=== PATIENT | female | born 1985 | race Caucasian/White ===

== ENCOUNTER 2016-12-04 17:06 | Emergency (ER) ==
[2016-12-04 17:14] VITALS: BP 150/93
[2016-12-04 17:50] LABS: URINE SOURCE CLEAN CATCH
--- NOTE | 2016-12-04 18:12 | PROVIDER DOCUMENTATION ---
HPI-Female /OB/Breast - General Chief Complaint: UTI Symptoms Stated Complaint: BACK PAIN Time Seen by Provider: 12/04/16 17:35 Source: reports: patient Allergies/Adverse Reactions: Patient Allergies Allergy/AdvReac Type Severity Reaction Status Date / Time No Known Allergies Allergy Verified 04/19/15 16:09 Home Medications: Home Medication List Medication Instructions Recorded Confirmed Last Taken Type Methocarbamol [Robaxin] 500 mg PO BID #30 tablet 12/04/16 Unknown Rx Nitrofurantoin Macrocrystal 100 mg PO BID #20 capsule 12/04/16 Unknown Rx [Nitrofurantoin] Phenazopyridine HCl [Pyridium] 100 mg PO TID #6 tablet 12/04/16 Unknown Rx - History of Present Illness-Female /OB Nature of Presenting Problem: 31 y/o WF c/o L low back pain x 2 days. Pt states no radiation, denies urinary sxs, injury, trauma, heavy lifting. Pt states no other sxs. Review of Systems - Adult - REVIEW OF SYSTEMS - ADULT Constitutional: reports: no symptoms reported. denies: chills, fever Eyes: reports: no symptoms reported. denies: blurred vision, double vision Ears, Nose, Mouth & Throat: reports: no symptoms reported. denies: ear pain, nose pain Cardiovascular: reports: no symptoms reported. denies: chest pain, palpitations Respiratory: reports: no symptoms reported. denies: dyspnea on exertion, shortness of breath Gastrointestinal: reports: no symptoms reported. denies: nausea, vomiting Genitourinary: reports: no symptoms reported. denies: dysuria, frequency Musculoskeletal: reports: see HPI, back pain. denies: joint pain, joint swelling Integumentary: reports: no symptoms reported. denies: nail changes, rash Neurological: reports: no symptoms reported. denies: numbness, paresthesia Psychiatric: reports: no symptoms reported Endocrine: reports: no symptoms reported. denies: cold intolerance, heat intolerance Hematologic/Lymphatic: reports: no symptoms reported. denies: easy bruising, prolonged bleeding Allergic/Immunologic: reports: no symptoms reported All Other Systems: Reviewed and Negative Past History - Adult - PAST MEDICAL HISTORY-ADULT Review of Records: reports: Nursing Assessment Review, Medications Reviewed Major Childhood Illnesses: reports: denies history Cardiovascular: reports: denies history Respiratory: reports: denies history Gastrointestinal: reports: GERD Obstetrical/Gynecological: reports: other (abnormal periods) Genitourinary: reports: denies history Musculoskeletal: reports: other (shoulder pain chronic) Neurological: reports: denies history Psychiatric: reports: denies history Endocrine/Immune: reports: denies history Other Conditions: reports: denies history - PRIOR SURGERIES/PROCEDURES Surgical/Procedure History: reports: none - PRIOR HOSPITALIZATIONS Prior Hospitalizations: reports: none - IMMUNIZATION STATUS Childhood Immunizations: UTD Flu Vaccine: See Nurse Assessment - FAMILY HISTORY Family History: reviewed, not pertinent - SOCIAL HISTORY Smoking: denies Physical Exam-General - PHYSICAL EXAM-ADULT Initial Vital Signs Reviewed: Yes - CONSTITUTIONAL General Appearance: alert, mild distress - EYES Eyes: pink conjunctivae - HEAD, EARS, NOSE, MOUTH & THROAT HENMT: normocephalic/atraumatic, moist mucous membranes - NECK Neck: normal inspection - RESPIRATORY Respiratory: no respiratory distress - GASTROINTESTINAL (ABDOMEN) Abdominal Exam: normal bowel sounds, non tender, soft. negative: distended, guarding, rigid - MUSCULOSKELETAL Back Exam: normal inspection, no CVA tenderness, no vertebral tenderness, decreased range of motion, other (TTP L low back) Extremity: normal gait. negative: abnormal NV exam - SKIN Integumentary: normal color, normal turgor, warm/dry - NEUROLOGIC Neurologic: negative: aphasia, motor weakness, sensory deficit - PSYCHIATRIC Psych/Mental Status: normal mood/affect, normal thought content, normal thought process, oriented x 3 Progress - PLAN OF CARE/RESULTS Progress/Plan/Lab Results: Laboratory Tests 12/04/16 12/04/16 17:38 17:38 Urine Source CLEAN CATCH Urine Color YELLOW Urine Clarity CLEAR Urine pH 6.5 Ur Specific Var[place] 1.015 Urine Protein NEGATIVE Urine Ketones NEGATIVE Urine Blood NEGATIVE Urine Nitrite NEGATIVE Urine Bilirubin NEGATIVE Urine Urobilinogen NORMAL Urine Microscopic RBC <10 Urine WBC 2+ A Urine Microscopic WBC 10-20 A Ur Epithelial Cells <10 Urine Bacteria 1+ Urine Glucose NEGATIVE Urine Test NEGATIVE Orders Category Date Time Status TEST-URINE [PREG] Stat Lab 12/04/16 17:[address] W/POSS RFLX CULT [URINALYSIS] Stat Lab 12/04/16 17:38 Completed URINE CULTURE [RM] Routine Lab 12/04/16 18:19 Completed Ketorolac [Toradol] Med 12/04/16 18:30 Discontinued 60 mg IM NOW ONE Orphenadrine [Norflex] Med 12/04/16 18:30 Discontinued 60 mg IM NOW ONE Vital Signs Temp Pulse Resp BP Pulse Ox 12/04/16 17:13 97.3 F L 73 18 150/93 100 No Known Allergies Allergy (Verified 04/19/15 16:09) Methocarbamol [Robaxin] 500 mg PO BID #30 tablet 12/04/16 Nitrofurantoin Macrocrystal [Nitrofurantoin] 100 mg PO BID #20 capsule 12/04/16 Phenazopyridine HCl [Pyridium] 100 mg PO TID #6 tablet 12/04/16 OTHER CHRONIC PAIN (12/04/16) GASTRO-ESOPHAGEAL REFLUX DISEASE WITHOUT ESOPHAGITIS (12/04/16) PAIN IN UNSPECIFIED SHOULDER (12/04/16) LOW BACK PAIN (12/04/16) ACUTE CYSTITIS WITHOUT HEMATURIA (12/04/16) Departure - Departure Time of Disposition Order: 18:28 DIAGNOSIS: UTI (urinary tract infection) Qualifiers: Urinary tract infection type: acute cystitis Hematuria presence: without hematuria Qualified Code(s): N30.00 - Acute cystitis without hematuria Back pain Qualifiers: Back pain location: low back pain Chronicity: acute Back pain laterality: left Sciatica presence: without sciatica Qualified Code(s): M54.5 - Low back pain Disposition: HOME 01 Certified Medical Emergency: Emergent Condition: Stable Additional Instructions: Take medications as directed. Heat as needed. Follow up with PCP for furhter management if symptoms persist. ED Follow Up Instructions: You have been treated by a care provider in the Emergency Department. These instructions are being provided to you so you can have an understanding of how to care for yourself upon discharge. Upon discharge from the Emergency Department, you are responsible for making arrangements for follow-up care by a physician of your choice. Take all prescribed medications as directed. Return to the Emergency Department immediately for any new or worsening symptoms. You may call the Physician Referral phone number at [phone] to obtain a list of Physicians who are taking new patients. Prescriptions: Nitrofurantoin Macrocrystal [Nitrofurantoin] 100 mg PO BID #20 capsule Phenazopyridine HCl [Pyridium] 100 mg PO TID #6 tablet Methocarbamol [Robaxin] 500 mg PO BID #30 tablet Referrals: Ayla Marrero MD [STAFF PHYSICIAN] - Forms: Return to School/Parent Work Instructions: Nitrofurantoin tablets or capsules, Phenazopyridine tablets, Urinary Tract Infection, [id number], Back Pain, Adult, [id number], Methocarbamol tablets Attestation - Physician/ DARIN Attestation Patient care was provided by Advanced Practice Provider:: Yes Advanced Practice Provider:: Yamile Odonnell Advanced Practice Provider documentation review:: The Mid-level provider documentation, treatment plan and medical decision making was reviewed by the physician who agrees with all treatment and medical decision making by the MLP.
[2016-12-04 18:17] LABS: BILIRUBIN URINE NEGATIVE (NEGATIVE); BLOOD URINE NEGATIVE (NEGATIVE); CLARITY CLEAR (CLEAR); COLOR YELLOW; GLUCOSE URINE NEGATIVE (NEGATIVE); LEUKOCYTES URINE 2+ (NEGATIVE); NITRITE URINE NEGATIVE (NEGATIVE); PH URINE 6.5; PROTEIN URINE NEGATIVE (NEGATIVE); SP GRAVITY URINE 1.015; UROBILINOGEN URINE NORMAL
[2016-12-04 18:18] LABS: URINE CULTURE PL NEEDED? YES; URINE EPITHELIAL CELLS <10 /HPF (<10); URINE RBC <10 /HPF (<10)
[2016-12-04] MEDS ORDERED: TORADOL IM ONE (18:30)
[2016-12-04] MEDS ORDERED: NORFLEX IM ONE (18:30)
== END 2016-12-04 18:58 | disposition home or self-care (01) ==
LOC: P.ED 17:06
DX: N30.00 Acute cystitis without hematuria (principal); M54.5 Low back pain; K21.9 Gastro-esophageal reflux disease without esophagitis; M25.519 Pain in unspecified shoulder; G89.29 Other chronic pain
CPT/HCPCS: 81001; 81025; 87088; 96372; J1885; J2360